=== PATIENT | male | born 1965 | race Caucasian/White ===

== ENCOUNTER 2024-04-29 12:14 | Emergency (ER) | payer BC ==
[~2024-04-29] VITALS: Ht 190.5 cm; Wt 113.4 kg
[2024-04-29] MEDS ORDERED: ATORVASTATIN CA20 M1 PO (12:37)
[2024-04-29] MEDS ORDERED: BENAZEPRIL20 MG PO (12:37)
[2024-04-29] MEDS ORDERED: AMLODIPINE BESYL5 MG PO (12:37)
[2024-04-29] MEDS ORDERED: BENZONATATE100 M1 PO (15:00)
[2024-04-29] MEDS ORDERED: ZITHROMAX250 MG PO (15:00)
[2024-04-29] MEDS ORDERED: PROTONIX40 MG PO (15:00)
== END 2024-04-29 15:10 | disposition home or self-care (01) ==
LOC: ED 12:14
DX: R05.9 Cough, unspecified (principal); K44.9 Diaphragmatic hernia without obstruction or gangrene; I10 Essential (primary) hypertension; E78.5 Hyperlipidemia, unspecified